=== PATIENT | male | born 1990 | race Caucasian/White ===

== ENCOUNTER 2016-11-21 08:28 | Emergency (ER) ==
[2016-11-21 08:38] VITALS: BP 141/101; TEMP 98.6; BMI 20.7
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
[2016-11-21 09:05] LABS: BASOPHILS % (AUTO) 0.5 % (0.0-3.0); EOSINOPHILS % (AUTO) 0.5 % (0.0-7.0); HEMATOCRIT 43.5 % (42.0-52.0); HEMOGLOBIN 15.4 g/dl (14.0-18.0); IMMATURE GRANULOCYTE % (AUTO) 0.2 % (0.0-5.0); LYMPHOCYTES # (AUTO) 2.2 K/uL (0.60-3.4); LYMPHOCYTES % (AUTO) 35.2 (10.0-50.0); MEAN CORPUSCULAR HEMOGLOBIN 31.8 pg (27.0-31.0); MEAN CORPUSCULAR HGB CONC 35.4 (31.8-35.4); MEAN CORPUSCULAR VOLUME 89.7 fl (80.0-94.0); MONOCYTES # (AUTO) 0.6 K/uL (0.4-2.0); MONOCYTES % (AUTO) 9.1 (0-10); NEUTROPHILS # (AUTO) 3.4 K/ul (2.0-6.9); NEUTROPHILS % (AUTO) 54.5; PLATELET COUNT 334 10^3/uL (140-440); RED BLOOD COUNT 4.85 10^6/ul (4.70-6.10); WHITE BLOOD COUNT 6.14 K/ul (4.2-10.2)
[2016-11-21] MEDS ORDERED: ZOFRAN ODT PO STA (09:15)
== END 2016-11-21 10:07 | disposition home or self-care (01) ==
LOC: ED 08:28
DX: T75.4XXA Electrocution, initial encounter (principal); S39.81XA Other specified injuries of abdomen, initial encounter; S29.8XXA Other specified injuries of thorax, initial encounter; F15.10 Other stimulant abuse, uncomplicated; Y35.893A Legal intervention involving other specified means, suspect injured, initial encounter; F17.210 Nicotine dependence, cigarettes, uncomplicated
CPT/HCPCS: 36415; 85025; 93005; 93010; 99282